=== PATIENT | female | born 1985 | race Two or more races ===

== ENCOUNTER 2022-08-20 07:04 | Day surgery (SDC) | payer OTHER | END 2022-08-20 16:10 | disposition home or self-care (01) | LOC: CIR.AMB 07:04 | PROVIDERS: ATTEND Obstetrics & Gynecology | DX: O34.32 Maternal care for cervical incompetence, second trimester (principal); Z3A.15 15 weeks gestation of pregnancy; Z20.822 Contact with and (suspected) exposure to COVID-19 ==

== ENCOUNTER 2022-10-26 17:47 | Inpatient (IN) | payer OTHER ==
[~2022-10-26] VITALS: Ht 165.1 cm; Wt 86.2 kg
[2022-10-27] MEDS ORDERED: PRENATAL + DHA1 EAC1 (13:37)
[2022-10-29] MEDS ORDERED: Procardia Xl 30MG TA PO (08:15)
== END 2022-10-29 09:43 | disposition home or self-care (01) | DRG 833 ==
LOC: LDR 17:47 → OB/GYN 10-27 10:33
PROVIDERS: ADMIT Obstetrics & Gynecology Maternal & Fetal Medicine; ATTEND Obstetrics & Gynecology Maternal & Fetal Medicine
PROC: 4A1HXCZ Monitoring of Products of Conception, Cardiac Rate, External Approach (ICD-10-PCS; principal; 2022-10-26)
PROC: BY4FZZZ Ultrasonography of Third Trimester, Single Fetus (ICD-10-PCS; 2022-10-26)
PROC: BU4CZZZ Ultrasonography of Uterus and Ovaries (ICD-10-PCS; 2022-10-26)
DX: O34.33 Maternal care for cervical incompetence, third trimester (principal); Z3A.37 37 weeks gestation of pregnancy; Z37.0 Single live birth; Z20.822 Contact with and (suspected) exposure to COVID-19

== ENCOUNTER 2022-11-19 09:42 | Outpatient (CLI) | payer OTHER ==
[~2022-11-19 09:42] MED LIST: PRENATAL + DHA1 EAC1; Procardia Xl 30MG TA PO
== END 2022-11-19 10:43 | disposition home or self-care (01) ==
LOC: NST 09:42
PROVIDERS: ATTEND Obstetrics & Gynecology Maternal & Fetal Medicine
DX: Z34.83 Encounter for supervision of other normal pregnancy, third trimester (principal)

== ENCOUNTER 2022-12-19 10:07 | Outpatient (CLI) | payer OTHER | END 2022-12-19 10:30 | disposition home or self-care (01) | LOC: NST 10:07 | PROVIDERS: ATTEND Obstetrics & Gynecology | DX: Z34.83 Encounter for supervision of other normal pregnancy, third trimester (principal) ==

== ENCOUNTER 2022-12-27 00:50 | Outpatient (CLI) | payer OTHER ==
[2022-12-27] MEDS ORDERED: BENADRYL ALLERG25 MG PO (01:04)
== END 2022-12-27 12:30 | disposition home or self-care (01) ==
LOC: OBS/DEL 00:50
PROVIDERS: ATTEND Obstetrics & Gynecology Gynecology
DX: O34.33 Maternal care for cervical incompetence, third trimester (principal); K21.9 Gastro-esophageal reflux disease without esophagitis; Z3A.34 34 weeks gestation of pregnancy

== ENCOUNTER 2023-01-08 12:22 | Outpatient (CLI) | payer OTHER ==
[~2023-01-08 12:22] MED LIST changes: +BENADRYL ALLERG25 MG PO
== END 2023-01-08 13:38 | disposition home or self-care (01) ==
LOC: NST 12:22
PROVIDERS: ATTEND Obstetrics & Gynecology
DX: Z34.83 Encounter for supervision of other normal pregnancy, third trimester (principal)

== ENCOUNTER 2023-01-19 12:29 | Inpatient (IN) | payer OTHER ==
[~2023-01-19] VITALS: Ht 165.1 cm; Wt 92.1 kg
[2023-01-30] MEDS ORDERED: PRENATAL TABLE1 EAC1 PO (14:47)
[2023-01-30 15:56] LABS: HEMATOCRIT 34.2 % (36.0-45.00); HEMOGLOBIN 11.5 g/dL (12.0-15.00); MEAN CELL VOLUME 85.3 fL (80.00-100.00); MEAN CORPUSCULAR HEMOGLOBIN 28.8 pg (27.00-32.0); MEAN CORPUSCULAR HGB CONC 33.7 g/dl (32.0-36.0); PLATELET COUNT 341 K/uL (150-450); RED BLOOD COUNT 4.01 M/uL (4.00-6.00); RED CELL DISTRIBUTION WIDTH 14.4 % (11.5-14.5)
[2023-01-30 16:12] LABS: INR 1.01; PROTHROMBIN TIME 10.6 SECONDS (9.0-11.5)
[2023-01-30 16:17] LABS: ALBUMIN 2.3 gm/dL (3.4-5.0); BILIRUBIN TOTAL 0.6 mg/dL (0.3-1.2); CALCIUM 8.7 mg/dL (8.5-10.1); CREATININE SERUM 0.47 mg/dL (0.55-1.02); GFR 149.1; GLOBULINA 4.1 G/DL (2.4-3.5); POTASSIUM 3.82 mEq/L (3.5-5.1); TOTAL PROTEIN 6.4 gm/dL (6.4-8.2)
[2023-01-30 20:24] LABS: ABG PH 7.309 (7.35-7.45); ABG pCO2 43.7 mmHg (35-45); BASE EXCESS -4.7 mmol/l; BICARBONATE 21.4 mmol/l (23-25); SaO2 47.1 %; Tco2 22.8 mmol/l
[2023-01-30 22:52] LABS: ABG PO2 29.1 mmHg (80-100); o2 21 %
[2023-01-31 10:08] LABS: HEMATOCRIT 30.9 % (36.0-45.00); HEMOGLOBIN 10.5 g/dL (12.0-15.00); MEAN CELL VOLUME 86.4 fL (80.00-100.00); MEAN CORPUSCULAR HEMOGLOBIN 29.3 pg (27.00-32.0); MEAN CORPUSCULAR HGB CONC 33.9 g/dl (32.0-36.0); PLATELET COUNT 322 K/uL (150-450); RED BLOOD COUNT 3.58 M/uL (4.00-6.00); RED CELL DISTRIBUTION WIDTH 14.4 % (11.5-14.5)
== END 2023-02-02 10:27 | disposition home or self-care (01) | DRG 788 ==
LOC: LDR 01-30 14:37 → O/R 01-30 14:37 → OB/GYN 01-30 17:49
PROVIDERS: ADMIT Obstetrics & Gynecology; ATTEND Obstetrics & Gynecology
PROC: 4A1HXCZ Monitoring of Products of Conception, Cardiac Rate, External Approach (ICD-10-PCS; 2023-01-30)
PROC: 10D00Z1 Extraction of Products of Conception, Low, Open Approach (ICD-10-PCS; principal; 2023-01-30 15:00)
DX: O36.8330 Maternal care for abnormalities of the fetal heart rate or rhythm, third trimester, not applicable or unspecified (principal); Z3A.39 39 weeks gestation of pregnancy; Z37.0 Single live birth; Z20.822 Contact with and (suspected) exposure to COVID-19

== ENCOUNTER 2023-01-29 11:02 | Outpatient (CLI) | payer OTHER ==
[2023-01-30] MEDS ORDERED: PRENATAL TABLE1 EAC1 PO (14:47)
== END 2023-01-29 12:31 | disposition home or self-care (01) ==
LOC: NST 11:02
PROVIDERS: ATTEND Obstetrics & Gynecology Maternal & Fetal Medicine
DX: Z34.83 Encounter for supervision of other normal pregnancy, third trimester (principal)